=== PATIENT | female | born 1950 | race Caucasian/White ===

== ENCOUNTER 2018-01-25 18:18 | Inpatient (IN) | payer MEDICARE ==
[2018-01-25] MEDS ORDERED: SODIUM CHLORIDE 0.9% 500 ML IV STA (18:54)
[2018-01-25] MEDS ORDERED: ONDANSETRON 4 MG/2 ML VIAL IVP STA (18:54)
[2018-01-25] MEDS ORDERED: MORPHINE SULFATE 2 MG/ML SYRINGE IVP STA (18:54)
--- NOTE | 2018-01-25 18:58 | ED ---
Abdominal Pain HPI - General Chief Complaint: Abdominal Pain Stated Complaint: abdominal pain Time Seen by Provider: 01/25/18 18:42 Source: patient Mode of arrival: wheelchair Limitations: no limitations - History of Present Illness Initial Comments: 67-year-old female patient presents to the emergency department today for evaluation of upper abdominal pain. The patient states the pain radiates up into her chest and down into her abdomen. Denies any radiation of the pain into her back. Patient states that this started suddenly while she was eating approximately one hour ago. Patient states she did attempt to eat a few more bites however the pain just got worse. Patient states she has had sweats with this. Denies any shortness of breath. States she is feeling nauseated but has not vomited. States that she has been having normal bowel movements. Denies any fevers or chills. Denies any history of similar symptoms. Patient denies any recent rash, diarrhea, constipation, numbness, tingling, dizziness, weakness , hematuria, dysuria, urinary urgency, urinary frequency, headache, visual changes, or any other complaints. - Related Data Home Medications Medication Instructions Recorded Confirmed Calcium Carbonate [Calcium] 600 mg PO DAILY 01/25/18 01/25/18 Multivitamins, Thera [Multivitamin 1 tab PO DAILY 01/25/18 01/25/18 (formulary)] Allergies Allergy/AdvReac Type Severity Reaction Status Date / Time No Known Allergies Allergy Verified 01/25/18 19:12 Review of Systems ROS Statement: Those systems with pertinent positive or pertinent negative responses have been documented in the HPI. ROS Other: All systems not noted in ROS Statement are negative. Past Medical History Additional Past Medical History / Comment(s): fatty liver History of Any Multi-Drug Resistant Organisms: None Reported Past Surgical History: No Surgical Hx Reported Past Psychological History: No Psychological Hx Reported Smoking Status: Never smoker Past Alcohol Use History: None Reported Past Drug Use History: None Reported General Exam Limitations: no limitations General appearance: alert, in no apparent distress, other (This is a well- developed, well-nourished adult female patient in no acute distress. Vital signs upon presentation are temperature 98.2F, pulse 60, respirations 20, blood pressure 183/90, pulse ox 99% on room air.) Eye exam: Present: normal appearance, PERRL, EOMI. Absent: scleral icterus, conjunctival injection, periorbital swelling ENT exam: Present: normal exam, normal oropharynx, mucous membranes moist Respiratory exam: Present: normal lung sounds bilaterally. Absent: respiratory distress, wheezes, rales, rhonchi, stridor Cardiovascular Exam: Present: regular rate, normal rhythm, normal heart sounds. Absent: systolic murmur, diastolic murmur, rubs, gallop, clicks GI/Abdominal exam: Present: soft, tenderness (Midepigastric tenderness), normal bowel sounds. Absent: distended, guarding, rebound, rigid Neurological exam: Present: alert, oriented X3, CN II-XII intact Psychiatric exam: Present: normal affect, normal mood Skin exam: Present: warm, dry, intact, normal color. Absent: rash Course Vital Signs 01/25/18 01/25/18 01/25/18 18:21 19:49 20:21 Temperature 98.2 F Pulse Rate 60 78 56 L Respiratory 20 19 15 Rate Blood Pressure 183/90 174/73 154/72 O2 Sat by Pulse 99 97 98 Oximetry 01/25/18 01/25/18 01/25/18 21:21 22:43 23:28 Temperature 98.2 F Pulse Rate 59 L 67 68 Respiratory 18 18 16 Rate Blood Pressure 156/82 140/94 149/75 O2 Sat by Pulse 98 95 95 Oximetry Medical Decision Making - Medical Decision Making 67-year-old female patient presented to the emergency department today for evaluation of midepigastric abdominal pain. Physical examination did reveal some tenderness over the midepigastric region. Labs reviewed and were unremarkable. Patient was given multiple doses of pain medication here in the department, despite this her symptoms continued. Patient did attempt to eat some ice chips however had return of pain immediately upon attempting to eat. Given patient's continued pain I did perform CT abdomen and pelvis which did reveal an incarcerated hiatal hernia with gastric antrum and duodenal bulb into the chest. There was concern for some obstruction of the gastric contents related to this. My attending Dr. Og did speak to the surgeon lamination inspector Dr. Rico who recommended placement of an NG tube and admission to the hospital for further evaluation. Patient will be admitted to Dr. Gutierres. Pain medication and nausea medication will be provided. Patient is NPO. - Lab Data Result diagrams: 01/25/18 18:37 01/25/18 18:37 Lab Results 01/25/18 01/25/18 01/25/18 Range/Units 18:37 18:37 18:37 WBC 5.9 (3.8-10.6) k/uL RBC 4.40 (3.80-5.40) m/uL Hgb 13.4 (11.4-16.0) gm/dL Hct 41.3 (34.0-46.0) % MCV 93.7 (80.0-100.0) fL MCH 30.5 (25.0-35.0) pg MCHC 32.5 (31.0-37.0) g/dL RDW 12.9 (11.5-15.5) % Plt Count 202 (150-450) k/uL Neutrophils % 49 % Lymphocytes % 39 % Monocytes % 7 % Eosinophils % 2 % Basophils % 1 % Neutrophils # 2.9 (1.3-7.7) k/uL Lymphocytes # 2.3 (1.0-4.8) k/uL Monocytes # 0.4 (0-1.0) k/uL Eosinophils # 0.1 (0-0.7) k/uL Basophils # 0.0 (0-0.2) k/uL Sodium 141 (137-145) mmol/L Potassium 3.7 (3.5-5.1) mmol/L Chloride 104 (98-107) mmol/L Carbon Dioxide 26 (22-30) mmol/L Anion Gap 11 mmol/L BUN 15 (7-17) mg/dL Creatinine 0.94 (0.52-1.04) mg/dL Est GFR (CKD-EPI)AfAm 74 (>60 ml/min/1.73 sqM) Est GFR (CKD-EPI)NonAf 64 (>60 ml/min/1.73 sqM) Glucose 91 (74-99) mg/dL Plasma Lactic Acid Can (0.7-2.0) mmol/L Calcium 10.1 (8.4-10.2) mg/dL Total Bilirubin 0.9 (0.2-1.3) mg/dL AST 45 H (14-36) U/L ALT 28 (9-52) U/L Alkaline Phosphatase 90 (38-126) U/L Total Creatine Kinase 165 H (30-135) U/L CK-MB (CK-2) 1.8 (0.0-2.4) ng/mL CK-MB (CK-2) Rel Index 1.1 Troponin I <0.012 (0.000-0.034) ng/mL Total Protein 8.0 (6.3-8.2) g/dL Albumin 4.6 (3.5-5.0) g/dL Amylase 68 (30-110) U/L Lipase 50 (23-300) U/L Urine Color Urine Appearance (Clear) Urine pH (5.0-8.0) Ur Specific [place] (1.001-1.035) Urine Protein (Negative) Urine Glucose (UA) (Negative) Urine Ketones (Negative) Urine Blood (Negative) Urine Nitrite (Negative) Urine Bilirubin (Negative) Urine Urobilinogen (<2.0) mg/dL Ur Leukocyte Esterase (Negative) Urine RBC (0-5) /hpf Urine WBC (0-5) /hpf Ur Squamous Epith Cells (0-4) /hpf Urine Bacteria (None) /hpf Hyaline Casts (0-2) /lpf Urine Mucus (None) /hpf Urine Yeast (Budding) (None) /hpf 01/25/18 01/25/18 Range/Units 18:37 19:29 WBC (3.8-10.6) k/uL RBC (3.80-5.40) m/uL Hgb (11.4-16.0) gm/dL Hct (34.0-46.0) % MCV (80.0-100.0) fL MCH (25.0-35.0) pg MCHC (31.0-37.0) g/dL RDW (11.5-15.5) % Plt Count (150-450) k/uL Neutrophils % % Lymphocytes % % Monocytes % % Eosinophils % % Basophils % % Neutrophils # (1.3-7.7) k/uL Lymphocytes # (1.0-4.8) k/uL Monocytes # (0-1.0) k/uL Eosinophils # (0-0.7) k/uL Basophils # (0-0.2) k/uL Sodium (137-145) mmol/L Potassium (3.5-5.1) mmol/L Chloride (98-107) mmol/L Carbon Dioxide (22-30) mmol/L Anion Gap mmol/L BUN (7-17) mg/dL Creatinine (0.52-1.04) mg/dL Est GFR (CKD-EPI)AfAm (>60 ml/min/1.73 sqM) Est GFR (CKD-EPI)NonAf (>60 ml/min/1.73 sqM) Glucose (74-99) mg/dL Plasma Lactic Acid Can 1.3 (0.7-2.0) mmol/L Calcium (8.4-10.2) mg/dL Total Bilirubin (0.2-1.3) mg/dL AST (14-36) U/L ALT (9-52) U/L Alkaline Phosphatase (38-126) U/L Total Creatine Kinase (30-135) U/L CK-MB (CK-2) (0.0-2.4) ng/mL CK-MB (CK-2) Rel Index Troponin I (0.000-0.034) ng/mL Total Protein (6.3-8.2) g/dL Albumin (3.5-5.0) g/dL Amylase (30-110) U/L Lipase (23-300) U/L Urine Color Yellow Urine Appearance Cloudy H (Clear) Urine pH 6.0 (5.0-8.0) Ur Specific [place] 1.014 (1.001-1.035) Urine Protein Trace H (Negative) Urine Glucose (UA) Negative (Negative) Urine Ketones Trace H (Negative) Urine Blood Trace H (Negative) Urine Nitrite Negative (Negative) Urine Bilirubin Negative (Negative) Urine Urobilinogen <2.0 (<2.0) mg/dL Ur Leukocyte Esterase Large H (Negative) Urine RBC 21 H (0-5) /hpf Urine WBC >182 H (0-5) /hpf Ur Squamous Epith Cells 13 H (0-4) /hpf Urine Bacteria Moderate H (None) /hpf Hyaline Casts 4 H (0-2) /lpf Urine Mucus Rare H (None) /hpf Urine Yeast (Budding) Rare H (None) /hpf - EKG Data -: EKG Interpreted by Me EKG Comments: EKG obtained in 190 shows sinus bradycardia with a ventricular rate of 57, SD interval 200, QR baptist 104, QTC 482, QTc 469. No evidence of ST elevation or depression - Radiology Data Radiology results: report reviewed, image reviewed Two-view x-ray of the chest is obtained. Report was reviewed in its entirety. Impression by Dr. Donis shows hiatal hernia. No active cardiopulmonary disease. Normal heart. Two-view x-ray of the abdomen is obtained. Report was reviewed in its entirety. Impression by Dr. Donis shows There is probably some constipation. Nonacute abdomen. Hiatal hernia. CT abdomen and pelvis with contrast was obtained. Report was reviewed in its entirety. Impression by Dr. Donis shows sigmoid diverticulosis without diverticulitis. There is hiatal hernia. There is incarcerated hernia the gastric antrum and duodenal bulb into the chest. There is probably some degree of obstruction of the gastric emptying due to his unusual hernia. No sign of acute abdomen and pelvis. Normal appendix. One view x-ray of the abdomen is obtained for tube placement. NG tube appears in good position. Disposition Clinical Impression: Incarcerated hiatal hernia Disposition: ADMITTED IP TO THIS [facility] Condition: Serious Decision to Admit Reason: Admit from [facility] Decision Date: 01/25/18 Decision Time: 23:43
[2018-01-25 19:07] LABS: Basophils % (A) 1 %; Eosinophils # (A) 0.1 k/uL (0-0.7); Eosinophils % (A) 2 %; HCT 41.3 % (34.0-46.0); HGB 13.4 gm/dL (11.4-16.0); Lymphocytes # (A) 2.3 k/uL (1.0-4.8); Lymphocytes % (A) 39 %; MCH 30.5 pg (25.0-35.0); MCHC 32.5 g/dL (31.0-37.0); MCV 93.7 fL (80.0-100.0); Mean Platelet Volume 7.5; Monocytes # (A) 0.4 k/uL (0-1.0); Monocytes % (A) 7 %; Neutrophils # (A) 2.9 k/uL (1.3-7.7); Neutrophils % (A) 49 %; Platelet Count 202 k/uL (150-450); RDW 12.9 % (11.5-15.5); WBC 5.9 k/uL (3.8-10.6)
[2018-01-25 19:09] LABS: Albumin 4.6 g/dL (3.5-5.0); Calcium 10.1 mg/dL (8.4-10.2); Potassium 3.7 mmol/L (3.5-5.1); Total Bilirubin 0.9 mg/dL (0.2-1.3)
[2018-01-25 19:17] LABS: Creatine Kinase 165 U/L (30-135)
[2018-01-25 19:29] LABS: Creatine Kinase MB 1.8 ng/mL (0.0-2.4); Troponin I <0.012 ng/mL (0.000-0.034)
[2018-01-25 19:42] LABS: Appearance,Urine Cloudy (Clear); Bacteria,Urine Moderate /hpf; Bilirubin,Urine Negative (Negative); Blood,Urine Trace (Negative); Budding Yeast,Urine Rare /hpf; Color,Urine Yellow; Glucose,Urine (UA) Negative (Negative); Hyaline Casts,Urine 4 /lpf (0-2); Ketones,Urine Trace (Negative); Leukocyte Esterase,Urine Large (Negative); Mucus,Urine Rare /hpf; Nitrite,Urine Negative (Negative); Protein,Urine Trace (Negative); RBC,Urine 21 /hpf (0-5); Specific Gravity,Urine 1.014 (1.001-1.035); Squamous Epithelial Cell,Urine 13 /hpf (0-4); Urobilinogen,Urine <2.0 mg/dL (<2.0); WBC,Urine >182 /hpf (0-5)
[2018-01-25] MEDS ORDERED: MORPHINE SULFATE 4 MG/ML SYRINGE IVP STA (19:51)
--- NOTE | 2018-01-25 19:54 | XR ---
EXAMINATION TYPE: XR chest 2V DATE OF EXAM: 01/25/2018 COMPARISON: NONE HISTORY: Abdominal pain TECHNIQUE: Frontal and lateral views of the chest are obtained. FINDINGS: There is moderate hiatal hernia. Heart is normal. Lungs are clear of infiltrate. There is no pleural effusion. Bony thorax is intact. IMPRESSION: Hiatal hernia. No active cardiopulmonary disease. Normal heart.
--- NOTE | 2018-01-25 20:00 | XR ---
EXAMINATION TYPE: XR KUB DATE OF EXAM: 01/25/2018 COMPARISON: NONE HISTORY: Abdominal pain TECHNIQUE: 2 views FINDINGS: There is no sign of intestinal obstruction or pneumoperitoneum. There is some retained feca l material throughout the colon. There are no pathologic calcifications over the kidneys. Lung bases are clear. There is hiatal hernia. There is no evidence of a mass. IMPRESSION: There is probably some constipation. Nonacute abdomen. Hiatal hernia.
[2018-01-25] MEDS ORDERED: METOCLOPRAMIDE 5 MG/ML 2 ML VIAL IVP STA (20:15)
--- NOTE | 2018-01-25 21:51 | CT ---
EXAMINATION TYPE: CT abdomen pelvis w con DATE OF EXAM: 01/25/2018 COMPARISON: None HISTORY: Hiatal hernia, abdominal pain CT DLP: 532.2 mGycm Automated exposure control for dose reduction was used. TECHNIQUE: Helical acquisition of images was performed from the lung bases through the pelvis. CONTRAST: Performed without Oral Contrast and with IV Contrast, patient injected with 100 mL of Isovue 300. FINDINGS: Lung bases are clear of infiltrate. There is no pleural effusion. There is subsegmental atelectasis a t the right lung base. There is moderate-sized hiatal hernia. The hiatal hernia is the gastric antrum herniating through the esophageal hiatus. Liver spleen pancreas gallbladder appear normal. Bile ducts are not dilated. There is no adrenal mass . Kidneys show satisfactory contrast opacification. There is no hydronephrosis. Appendix appears norm al. There is no retroperitoneal adenopathy. There are numerous diverticula in the sigmoid colon. I se e no sign of diverticulitis. Bladder distends smoothly. Uterus is anteverted. There is no evidence of a pelvic mass. Lumbar spine is intact. IMPRESSION: SIGMOID DIVERTICULOSIS WITHOUT DIVERTICULITIS. THERE IS HIATAL HERNIA. THERE IS INCARCERATED HERNIA O F THE GASTRIC ANTRUM AND DUODENAL BULB INTO THE CHEST. THERE IS PROBABLY SOME DEGREE OF OBSTRUCTION O F THE GASTRIC EMPTYING DUE TO THIS UNUSUAL HERNIA. NO SIGN OF ACUTE ABDOMEN AND PELVIS. NORMAL APPENDIX.
[2018-01-25] MEDS ORDERED: NALOXONE 0.4 MG/ML 1 ML VIAL IV PRN (22:45)
[2018-01-25] MEDS ORDERED: ONDANSETRON 4 MG/2 ML VIAL IVP PRN (22:45)
[2018-01-25] MEDS ORDERED: MORPHINE SULFATE 4 MG/ML SYRINGE IV PRN (22:45)
--- NOTE | 2018-01-25 23:28 | XR ---
EXAMINATION TYPE: XR abdomen 1V DATE OF EXAM: 01/25/2018 COMPARISON: NONE HISTORY: Check tube placement TECHNIQUE: Single view FINDINGS: There is nasogastric feeding tube with the tip probably in the body of the stomach. There i s some dilute contrast in the renal collecting systems. There is no sign of pneumoperitoneum. IMPRESSION: NG tube appears in good position.
[2018-01-25] MEDS: SODIUM CHLORIDE 0.9% 1,000 ML IV SCH (23:31)
[2018-01-26] MEDS: FAMOTIDINE 20 MG/2 ML VIAL IV SCH ×2 (09:52→20:15)
--- NOTE | 2018-01-26 10:23 | P.GSHP ---
History of Present Illness H&P Date: 01/26/18 Chief Complaint: Abdominal 67-year-old female presented to the emergency room on the day of admission with a chief complaint of developing a sudden onset of midepigastric abdominal pain patient denied any prior episodes. Patient stated there was tenderness to the mid epigastric region. Patient stated the symptoms continue to persist. Presented to the emergency room for the above-mentioned symptoms. A CAT scan of the abdomen and pelvis reviewed the report showed incarcerated hiatal hernia with gastric antrum and duodenal bulb into the chest. Currently has a nasal gastric tube in place which was placed in the emergency room. Patient stated after the gastric tube was placed there was a significant improvement in the abdominal bloating patient has no significant past surgical history no medical history. Patient stated that she did intentionally lose 20 pounds this summer after she was told she had a fatty liver. Patient stated that she maintained on a low -fat diet . Currently states nasal gastric tube has decreased the abdominal distention with less abdominal pain - Review of Systems Comment: Essentially unremarkable except as mentioned in the present illness Past Medical History Additional Past Medical History / Comment(s): fatty liver, pre diabetic managed with diet and exercise History of Any Multi-Drug Resistant Organisms: None Reported Past Surgical History: No Surgical Hx Reported Additional Past Surgical History / Comment(s): D and C years ago, cyst removed from finger, wisdom teeth Past Psychological History: No Psychological Hx Reported Smoking Status: Never smoker Past Alcohol Use History: None Reported Past Drug Use History: None Reported - Past Family History Mother Family Medical History: Hyperlipidemia Additional Family Medical History / Comment(s): 85 she is slii alive, Medications and Allergies Home Medications Medication Instructions Recorded Confirmed Type Calcium Carbonate [Calcium] 600 mg PO DAILY 01/25/18 01/25/18 History Multivitamins, Thera [Multivitamin 1 tab PO DAILY 01/25/18 01/25/18 History (formulary)] Allergies Allergy/AdvReac Type Severity Reaction Status Date / Time No Known Allergies Allergy Verified 01/25/18 19:12 Surgical - Exam Vital Signs Temp Pulse Resp BP Pulse Ox 98.2 F 60 20 183/90 99 01/25/18 18:21 01/25/18 18:21 01/25/18 18:21 01/25/18 18:21 01/25/18 18:21 GENERAL APPEARANCE: 67-year-old patient is alert, oriented, in no acute distress. Sitting up in bed and nasogastric tube in place reports a noted improvement in the abdominal distention less abdominal pain VITAL SIGNS: Reviewed HEENT: Head is normocephalic and atraumatic. Pupils are equal and reactive. The nares are patent. Oropharynx is clear without lesions. NECK: Supple without lymphadenopathy. Traches midline. HEART: S1, S2. Regular rate and rhythm. Denies any chest pain no murmur noted LUNGS: No crackles or wheezes are heard. On room air sats greater than 95% ABDOMEN: Soft, epigastric tenderness nasogastric tube to suction brownish secretions noted in the canister nondistended few bowel sounds. No peritoneal signs. No palpable organomegaly or masses. EXTREMITIES: Normal skin color and turgor. No cyanosis, rash, ulceration, clubbing or edema. Radial pedal pulses are 2/4 bilaterally. NEUROLOGICAL: No focal deficits. Strength and sensation are grossly intact. Results - Labs 01/25/18 18:37 01/25/18 18:37 Abnormal Lab Results - Last 24 Hours (Table) 01/25/18 01/25/18 01/25/18 Range/Units 18:37 18:37 19:29 AST 45 H (14-36) U/L Total Creatine Kinase 165 H (30-135) U/L Urine Appearance Cloudy H (Clear) Urine Protein Trace H (Negative) Urine Ketones Trace H (Negative) Urine Blood Trace H (Negative) Ur Leukocyte Esterase Large H (Negative) Urine RBC 21 H (0-5) /hpf Urine WBC >182 H (0-5) /hpf Ur Squamous Epith Cells 13 H (0-4) /hpf Urine Bacteria Moderate H (None) /hpf Hyaline Casts 4 H (0-2) /lpf Urine Mucus Rare H (None) /hpf Urine Yeast (Budding) Rare H (None) /hpf Diabetes panel 01/25/18 Range/Units 18:37 Sodium 141 (137-145) mmol/L Potassium 3.7 (3.5-5.1) mmol/L Chloride 104 (98-107) mmol/L Carbon Dioxide 26 (22-30) mmol/L BUN 15 (7-17) mg/dL Creatinine 0.94 (0.52-1.04) mg/dL Glucose 91 (74-99) mg/dL Calcium 10.1 (8.4-10.2) mg/dL AST 45 H (14-36) U/L ALT 28 (9-52) U/L Alkaline Phosphatase 90 (38-126) U/L Total Protein 8.0 (6.3-8.2) g/dL Albumin 4.6 (3.5-5.0) g/dL Calcium panel 01/25/18 Range/Units 18:37 Calcium 10.1 (8.4-10.2) mg/dL Albumin 4.6 (3.5-5.0) g/dL Pituitary panel 01/25/18 Range/Units 18:37 Sodium 141 (137-145) mmol/L Potassium 3.7 (3.5-5.1) mmol/L Chloride 104 (98-107) mmol/L Carbon Dioxide 26 (22-30) mmol/L BUN 15 (7-17) mg/dL Creatinine 0.94 (0.52-1.04) mg/dL Glucose 91 (74-99) mg/dL Calcium 10.1 (8.4-10.2) mg/dL Adrenal panel 01/25/18 Range/Units 18:37 Sodium 141 (137-145) mmol/L Potassium 3.7 (3.5-5.1) mmol/L Chloride 104 (98-107) mmol/L Carbon Dioxide 26 (22-30) mmol/L BUN 15 (7-17) mg/dL Creatinine 0.94 (0.52-1.04) mg/dL Glucose 91 (74-99) mg/dL Calcium 10.1 (8.4-10.2) mg/dL Total Bilirubin 0.9 (0.2-1.3) mg/dL AST 45 H (14-36) U/L ALT 28 (9-52) U/L Alkaline Phosphatase 90 (38-126) U/L Total Protein 8.0 (6.3-8.2) g/dL Albumin 4.6 (3.5-5.0) g/dL Assessment and Plan Assessment: Impression Present on admission mid epigastric abdominal pain sudden onset with bloating nausea vomiting CAT scan abdomen and pelvis obtained on admission report indicate incarcerated hiatal hernia with gastric antrum and duodenal bulb into the chest Present on admission hypertension urgency suspect due to pain plan Keep patient nothing by mouth Pain control Continue nasogastric tube to suction DVT and GI prophylaxis Scheduled today for laparoscopic repair of hiatal hernia IV fluid hydration Repeat labs in the morning The above impression and plan of care have been discussed and directed by signing physician. Margo Logan nurse practitioner acting as scribe for signing physician.
[2018-01-26] MEDS ORDERED: IV FLUID CONTINUATION 1,000 ML IV ONE (13:09)
[2018-01-26] MEDS ORDERED: DEXAMETHASONE SOD PHOSPHATE 4 MG/ML 1 ML VIAL IV ONE (13:28)
[2018-01-26] MEDS ORDERED: MIDAZOLAM 2 MG/2 ML VIAL IV ONE (13:36)
[2018-01-26] MEDS ORDERED: hydrALAZINE HCL 20 MG/ML 1 ML VIAL IVP PRN (13:43)
[2018-01-26] MEDS ORDERED: HEPARIN SODIUM,PORCINE 5,000 UNIT/ML 1 ML VIAL SQ ONE (14:06)
[2018-01-26] MEDS ORDERED: MORPHINE SULFATE 10 MG/ML SYRINGE ONE (14:33)
[2018-01-26] MEDS ORDERED: ROCURONIUM BROMIDE 10 MG/ML 10 ML VIAL IV ONE (14:33)
[2018-01-26] MEDS ORDERED: PROPOFOL 10 MG/ML 20 ML VIAL IV ONE (14:33)
[2018-01-26] MEDS ORDERED: LIDOCAINE 1% INJ 10MG/ML (20 ML MDV) ONE (14:33)
[2018-01-26] MEDS ORDERED: NEOSTIGMINE 1 MG/ML 10 ML VIAL ONE (14:33)
[2018-01-26] MEDS ORDERED: fentaNYL (PF) 50 MCG/ML 2 ML AMP ONE (14:33)
[2018-01-26] MEDS ORDERED: GLYCOPYRROLATE 0.2 MG/ML 2 ML VIAL ONE (14:33)
[2018-01-26] MEDS ORDERED: SUCCINYLCHOLINE CHLORIDE 100 MG/5 ML SYR IV ONE (14:33)
[2018-01-26] MEDS ORDERED: ePHEDrine SULFATE/0.9% NACL/PF 50 MG/5 ML SYRINGE IV ONE (14:33)
[2018-01-26] MEDS ORDERED: MIDAZOLAM 2 MG/2 ML VIAL ONE (14:33)
[2018-01-26] MEDS ORDERED: BUPIVACAIN-EPI 0.5%-1:200,000 30 ML VIAL SQ ONE (14:58)
[2018-01-26] MEDS ORDERED: LACTATED RINGERS 1,000 ML IV ONE (15:36)
--- NOTE | 2018-01-26 15:51 | P.OP ---
Date of Procedure: 01/26/18 Preoperative Diagnosis: Paraesophageal hernia with intrathoracic stomach Postoperative Diagnosis: Large paraesophageal hernia with intrathoracic stomach Procedure(s) Performed: Laparoscopic repair of paraesophageal hernia with mesh and fundoplication Anesthesia: ENRIKE Surgeon: German Gutierres IV fluids (ml): 10 Pathology: none sent Condition: stable Disposition: PACU Description of Procedure: The patient was placed on the operating table in the supine position. She received general anesthesia. She was then placed in dorsal lithotomy position. Her abdomen was prepped and draped in the usual sterile fashion. The skin incision sites were anesthetized with 1% local Xylocaine. The skin was incised in the left periumbilical area with an 11 scalpel. Using a 5 mm blade was trocar under direct visitation the peritoneal cavity was entered. And then insufflated. After adequate insufflation the laparoscope was placed back into the peritoneal cavity. Next a 5 mm trocar was placed in the right epigastric and then the right lateral position. Another 5 mm trochars placed in the left lateral position. Another 5 mm trocar placed in the left epigastric position. And the original left periumbilical trocar was exchanged for a 10 mm trocar. The left lateral lobe liver was retracted. The patient had a large hiatal hernia. There was a paraesophageal component. Stomach is intrathoracic. There is a large amount of omentum in the hernia. Using the Harmonic scissors the crural defect was dissected in the Harmonic scissors were used to dissect the hiatal hernia sac. The fundus of the stomach was completely mobilized by using the Harmonic scissors to divide short gastric vessels. The stomach was reduced into the peritoneal cavity. The crura was dissected with the Harmonic scissors. And then the crural repair was performed using 2-0 Ethibond suture. The [place] bio A mesh was then placed over top of the repair and secured with 2-0 Ethibond suture. Next a 58-Iraqi bougie dilator was placed the patient's oral pharynx and into the esophagus into the stomach by the WAIST PRESSER. The fundoplication was then performed using 2-0 Ethibond suture. A 360 fundoplication was performed. At this point the dilator was withdrawn. The stomach and esophagus were inspected there is known to any injury to the stomach or esophagus. The abdomen was irrigated there is no bleeding seen. The trochars are withdrawn. Skin was closed interrupted 3-0 Monocryl suture. Dermabond was applied. Patient tolerated procedure well and was sent to recovery in stable condition.
[2018-01-26] MEDS: HYDROmorphone 1 MG/ML 1 ML SYRINGE IVP ONE ×2 (16:50→17:05)
--- NOTE | 2018-01-26 16:51 | CONS ---
CONSULTATION DATE OF SERVICE: 01/26/2018. REASON FOR CONSULTATION: Advice regarding prediabetes and other medical issues requested by Dr. Gutierres. HISTORY OF PRESENT ILLNESS: This 67-year-old woman with a past medical history of fatty liver, prediabetes, being followed by primary physician in [place] was visiting family in [place]. The patient was noted to have abdominal pain which is in the upper abdomen radiating to the chest and back and the patient came to [facility] and admitted for further evaluation and treatment. The UA showed evidence of UTI and abdominal pelvis CAT scan was also done which showed evidence of sigmoid diverticulosis without any diverticulitis and also incarcerated hiatal hernia with a gastric antrum and duodenal bulb into the chest and some obstruction of the gastric emptying was also noted. Patient admitted for further evaluation. Dr. Gutierres is following the patient closely for possible surgery. There is no history of fever, rigors. No headache, loss of consciousness, seizures. PAST MEDICAL HISTORY: Fatty live, Prediabetes, diet and exercise. MEDICATIONS: Prior to admission: 1. Multivitamins 1 p.o. daily. 2. Calcium 600 mg. ALLERGIES: None. FAMILY HISTORY: Hyperlipidemia in the family. SOCIAL HISTORY: No history of smoking. No history of alcohol intake. REVIEW OF SYSTEMS: ENT: No diminished hearing or vision. CARDIOVASCULAR: No angina. RESPIRATORY: No cough. GI: As mentioned earlier. : No dysuria. NERVOUS SYSTEM: No numbness or weakness. ALLERGY/IMMUNOLOGY: No asthma. MUSCULOSKELETAL: As mentioned earlier. HEMATOLOGY/ONCOLOGY: No history of diabetes or hypothyroidism. CONSTITUTIONAL: As mentioned earlier. DERMATOLOGY: Negative. RHEUMATOLOGY: Negative. PSYCHIATRY: As mentioned earlier. PHYSICAL EXAMINATION: Alert, oriented x3. Pulse 62, blood pressure 170/85, respirations 16, temperature 97.7, pulse ox 98% on room air. HEENT: Conjunctivae normal. Oral mucosa moist. NECK: No jugular venous distention. No carotid bruit. No lymph node enlargement. CARDIOVASCULAR: S1, S2. No S3, no S4. RESPIRATORY: Breath sounds diminished in the bases. A few scattered rhonchi. No crackles. ABDOMEN: Soft. Mild diffuse discomfort on palpation. No guarding. No rigidity. No mass palpable. Bowel sounds diminished. LEGS: No edema, no swelling. NERVOUS SYSTEM: Higher functions as mentioned. Moves all 4 limbs. No focal motor deficits. LYMPHATICS: No lymphadenopathy in the neck, axillae, groin. SKIN: No ulcer, rash. LABS: CBC within normal limits. AST is 45, 165. Troponins are negative. UA shows UTI. ASSESSMENT: 1. Abdominal pain with incarcerated hiatal hernia with a gastric antrum and duodenal bulb into the chest. 2. Sigmoid diverticulosis without diverticulitis. 3. Prediabetes. 4. Labile hypertension. 5. Increased AST. 6. Urinary tract infection. RECOMMENDATION AND DISCUSSION: This 67-year-old woman who presented with multiple medical issues, at this time I recommend to continue current management and symptomatic treatment. I would recommend IV Rocephin. Follow the cultures. Surgical evaluation. Also recommend DVT prophylaxis. Repeat labs. We will follow the patient closely with you. I recommend to monitor blood pressure closely and p.r.n. hydralazine may be used for now. See orders for further details. Thank you Dr. Gutierres for letting us participate in this patient. MMODL / IJN: [id number] / MIRA
[2018-01-26] MEDS: D5-0.45% NACL WITH KCL 20MEQ/L 1,000 ML IV SCH (17:55)
[2018-01-26] MEDS: SODIUM CHLORIDE 0.9% 1,000 ML IV SCH (18:12)
[2018-01-26] MEDS: HYDROmorphone 1 MG/ML 1 ML SYRINGE IVP PRN (19:15)
[2018-01-26] MEDS ORDERED: HEPARIN SODIUM,PORCINE 5,000 UNIT/ML 1 ML VIAL SQ SCH (21:00)
[2018-01-27] MEDS: HYDROmorphone 1 MG/ML 1 ML SYRINGE IVP PRN ×5 (01:22→20:19)
[2018-01-27] MEDS: SODIUM CHLORIDE 0.9% 1,000 ML IV SCH ×3 (05:08→13:46)
[2018-01-27] MEDS: D5-0.45% NACL WITH KCL 20MEQ/L 1,000 ML IV SCH ×4 (05:08→23:25)
[2018-01-27 07:22] LABS: Basophils % (A) 0 %; Eosinophils % (A) 0 %; HCT 37.6 % (34.0-46.0); HGB 12.2 gm/dL (11.4-16.0); Lymphocytes # (A) 0.5 k/uL (1.0-4.8); Lymphocytes % (A) 7 %; MCH 30.6 pg (25.0-35.0); MCHC 32.5 g/dL (31.0-37.0); MCV 94.2 fL (80.0-100.0); Mean Platelet Volume 7.7; Monocytes # (A) 0.4 k/uL (0-1.0); Monocytes % (A) 6 %; Neutrophils # (A) 6.2 k/uL (1.3-7.7); Neutrophils % (A) 87 %; Platelet Count 163 k/uL (150-450); RDW 12.9 % (11.5-15.5); WBC 7.2 k/uL (3.8-10.6)
[2018-01-27 07:42] LABS: ALT 43 U/L (9-52); AST 63 U/L (14-36); Albumin 3.6 g/dL (3.5-5.0); Alkaline Phosphatase 55 U/L (38-126); Anion Gap 9 mmol/L; Blood Urea Nitrogen 11 mg/dL (7-17); Calcium 9.1 mg/dL (8.4-10.2); Carbon Dioxide 25 mmol/L (22-30); Chloride 104 mmol/L (98-107); Glucose 135 mg/dL (74-99); Potassium 4.5 mmol/L (3.5-5.1); Sodium 138 mmol/L (137-145); Total Bilirubin 0.7 mg/dL (0.2-1.3); Total Protein 6.3 g/dL (6.3-8.2)
[2018-01-27] MEDS: FAMOTIDINE 20 MG/2 ML VIAL IV SCH ×2 (08:45→20:20)
[2018-01-27] MEDS: ENOXAPARIN 40 MG/0.4 ML SYRINGE SQ SCH (08:45)
--- NOTE | 2018-01-27 08:46 | FL ---
EXAMINATION TYPE: FL esophagus cervic/pharynx DATE OF EXAM ORDERED: 01/27/2018 8:41 AM HISTORY: Status post Delicia fundoplication. COMPARISON: None. FINDINGS: The patient drank contrast with ease. There was mild to moderate holdup of contrast at the GE junction. There is no evidence of extravasation. The ligament of Treitz is in the normal location . There is moderate free air. IMPRESSION: STATUS POST DELICIA FUNDOPLICATION.
[2018-01-27 12:28] VITALS: BMI 24.5
--- NOTE | 2018-01-27 15:52 | PN ---
PROGRESS NOTE DATE OF SERVICE: 01/27/2018 This 67-year-old woman was admitted with abdominal pain, incarcerated hiatal hernia underwent laparoscopic repair of the paraesophageal hernia with mesh and fundoplication by Dr. Gutierres. No chest pains, no palpitations. No fever. Patient also has UTI. Patient on antibiotics. EXAM: Alert and oriented x3. The pulse is 67, blood pressure 151/83, respirations 16, temperature 98.1, pulse ox 90% on room air. HEENT: Conjunctivae normal. NECK: No jugular venous distention. CARDIOVASCULAR: S1, S2. RESPIRATORY: Breath sounds diminished in the bases. A few scattered rhonchi. No crackles. ABDOMEN: Soft, mild tenderness. No mass palpable. LEGS: No edema. NERVOUS SYSTEM: No focal deficits. LABS: WBC 7, hemoglobin 12.2. AST 63 and ALT is normal. UA noted. ASSESSMENT: 1. Abdominal pain with incarcerated hiatal hernia with gastric and duodenal bulb in the chest, status post laparoscopic repair of the paraesophageal hernia with mesh and fundoplication. 2. Sigmoid diverticulosis without diverticulitis. 3. Prediabetes history. 4. Labile hypertension. 5. Increased AST. 6. Urinary tract infection, present on admission. RECOMMENDATIONS AND DISCUSSION: I recommend to continue current management and symptomatic treatment. Otherwise at this time, we will monitor the patient closely. Continue the antibiotics and incentive spirometry. Closely follow with surgery. Further recommendations to follow. JOSÉ MIGUEL / BRITTANEY: [id number] /
--- NOTE | 2018-01-27 16:15 | P.PN ---
Subjective Progress Note Date: 01/27/18 HISTORY OF PRESENT ILLNESS: The patient is a 67-year-old female who is actually traveling from out of town [place], [place] who developed acute onset chest and abdominal pain 2-3 days ago. She was found to have an intrathoracic stomach and some somatic hiatal hernia. She had emergent surgery with a hiatal hernia repair done by Dr. Gutierres yesterday. She reports persistent chest pressure however her abdominal pain is resolved. She reports moderate gas within her shoulder blades. She completed an esophagram demonstrating moderate edema along the hiatal hernia site. She reports some improvement with drinking liquids following her esophagram yesterday. PHYSICAL EXAM: GENERAL: Well-developed in no distress. HEENT: No scleral icterus. Extraocular movements grossly intact. Hears conversational speech. No nasal drainage. NECK: Supple without lymphadenopathy. CHEST: Nonlabored respirations with equal bilateral excursions. CARDIOVASCULAR: Regular rate and regular rhythm. Distal 2+ pulses. ABDOMEN: Incisions clean dry and intact MUSCULOSKELETAL: No clubbing, cyanosis, or edema. Gross strength 5/5 distal lower extremities. NEURO: No focal or lateralizing signs. Cranial nerves 2 through 12 grossly within normal limits. PSYCH: Appropriate affect. Alert and oriented to person, place and time. SKIN: Good skin turgor. Well perfused. ASSESSMENT: 1. Intrathoracic stomach from hiatal hernia PLAN: 1. Her esophagram still demonstrates moderate edema. Continue liquid diet 2. Recommend simethicone and Levsin for esophageal spasms and gas pains Objective - Vital Signs Vital signs: Vital Signs Temp 98.2 F 01/27/18 07:15 Pulse 63 01/27/18 07:15 Resp 18 01/27/18 07:15 BP 148/74 01/27/18 07:15 Pulse Ox 94 L 01/27/18 07:15 Intake & Output 01/26/18 01/27/18 01/27/18 18:59 06:59 18:59 Intake Total 2920 Output Total 10 Balance 2910 Intake: IV 1620 Intake, IV Titration 1000 Amount Sodium Chloride 0.9% 1, 1000 000 ml @ 125 mls/hr IV . Q8H DENISE Rx#:[id number] Oral 300 Output: Estimated Blood Loss 10 Other: # Voids 2 # Bowel Movements 1 - Labs CBC & Chem 7: 01/27/18 06:43 01/27/18 06:43 Labs: Abnormal Lab Results - Last 24 Hours (Table) 01/27/18 01/27/18 Range/Units 06:43 06:43 Lymphocytes # 0.5 L (1.0-4.8) k/uL Glucose 135 H (74-99) mg/dL AST 63 H (14-36) U/L Microbiology - Last 24 Hours (Table) 01/25/18 18:37 Blood Culture - Preliminary Blood No Growth after 24 hours 01/25/18 21:05 Urine Culture - Preliminary Urine,Voided
[2018-01-27] MEDS: SIMETHICONE 40 MG/0.6 ML DROPS 2,000 MG/30 ML BOTTLE PO SCH ×2 (17:10→20:20)
[2018-01-27] MEDS: HYOSCYAMINE ORAL DROPS 1.875 MG/15 ML BOTTLE PO SCH ×3 (17:10→23:26)
[2018-01-28] MEDS: HYDROmorphone 1 MG/ML 1 ML SYRINGE IVP PRN ×2 (00:36→05:40)
[2018-01-28] MEDS: HYOSCYAMINE ORAL DROPS 1.875 MG/15 ML BOTTLE PO SCH ×5 (03:25→19:37)
[2018-01-28] MEDS: SODIUM CHLORIDE 0.9% 1,000 ML IV SCH ×3 (05:30→19:28)
[2018-01-28] MEDS: D5-0.45% NACL WITH KCL 20MEQ/L 1,000 ML IV SCH ×2 (10:13→19:27)
[2018-01-28] MEDS: SIMETHICONE 40 MG/0.6 ML DROPS 2,000 MG/30 ML BOTTLE PO SCH ×4 (10:17→23:01)
[2018-01-28] MEDS: FAMOTIDINE 20 MG/2 ML VIAL IV SCH ×2 (10:17→19:37)
[2018-01-28] MEDS: ENOXAPARIN 40 MG/0.4 ML SYRINGE SQ SCH (10:17)
[2018-01-28] MEDS: cefTRIAXone IN SWFI 1,000 MG/10 ML SYRINGE IVP SCH (10:25)
[2018-01-28] MEDS ORDERED: DEXAMETHASONE SOD PHOSPHATE 10 MG/ML 1 ML VIAL IV STA (12:34)
--- NOTE | 2018-01-28 12:36 | P.PN ---
Subjective Progress Note Date: 01/28/18 CHIEF COMPLAINT: Acute epigastric abdominal pain with history of intrathoracic stomach HISTORY OF PRESENT ILLNESS: The patient is a 67-year-old female who is actually traveling from out of town [place], [place] who developed acute onset chest and abdominal pain prior to admission to the hospital. She is status post hiatal hernia repair. She had severe upper shoulder and chest pain which had improved after adjustment of medications for esophageal spasm and gas. Abdominal pain resolved. She does report dysphagia with liquids. PHYSICAL EXAM: GENERAL: Well-developed in no distress. HEENT: No scleral icterus. Extraocular movements grossly intact. Hears conversational speech. No nasal drainage. NECK: Supple without lymphadenopathy. CHEST: Nonlabored respirations with equal bilateral excursions. CARDIOVASCULAR: Regular rate and regular rhythm. Distal 2+ pulses. ABDOMEN: Incisions clean dry and intact MUSCULOSKELETAL: No clubbing, cyanosis, or edema. Gross strength 5/5 distal lower extremities. NEURO: No focal or lateralizing signs. Cranial nerves 2 through 12 grossly within normal limits. PSYCH: Appropriate affect. Alert and oriented to person, place and time. SKIN: Good skin turgor. Well perfused. ASSESSMENT: 1. Intrathoracic stomach from hiatal hernia PLAN: 1. Recommend Decadron for edema following hiatal hernia repair 2. Continue hospitalization has dysphasia improves 3. Nonnarcotic analgesics for pain Objective - Vital Signs Vital signs: Vital Signs Temp 98.4 F 01/28/18 07:37 Pulse 56 L 01/28/18 07:37 Resp 16 01/28/18 07:37 BP 139/86 01/28/18 07:37 Pulse Ox 93 L 01/28/18 07:37 Intake & Output 01/27/18 01/28/18 01/28/18 18:59 06:59 18:59 Intake Total 540 250 Output Total 700 Balance 540 -700 250 Weight 68.946 kg Intake: Oral 540 250 Output: Urine 700 Other: # Voids 1 - Labs CBC & Chem 7: 01/27/18 06:43 01/27/18 06:43 Labs: Microbiology - Last 24 Hours (Table) 01/25/18 18:37 Blood Culture - Preliminary Blood No Growth after 48 hours 01/25/18 21:05 Urine Culture - Final Urine,Voided
[2018-01-28] MEDS ORDERED: KETOROLAC 30 MG/ML 1 ML VIAL IVP PRN (12:37)
--- NOTE | 2018-01-28 14:20 | PN ---
PROGRESS NOTE DATE OF SERVICE: 01/28/2018. INTERVAL HISTORY: This 67-year-old woman who was admitted with abdominal pain, incarcerated hiatal hernia, had surgery. The patient is improving significantly. No chest pain. No palpitations. No fever. PHYSICAL EXAM: Alert and oriented times three. Pulse is 56. Blood pressure 139/86, respiration 16, temperature 98.4, pulse ox 93% room air. HEENT: Conjunctivae normal. Oral mucosa moist. NECK is no jugular venous distention. No carotid bruit. No lymph node enlargement. CARDIOVASCULAR: Breath sounds diminished in the bases. No rhonchi. No crackles. ABDOMEN: Soft. Status post surgery. Legs are no edema. No swelling. NERVOUS SYSTEM: No focal deficits. LABORATORY DATA: UTI otherwise AST 63. ASSESSMENT: 1. Abdominal pain, incarcerated hiatal hernia with a gastric and duodenal bulb in the chest status post laparoscopic repair of the paraesophageal hernia with mesh and fundoplication. 2. Sigmoid diverticulosis without diverticulitis. 3. Prediabetic history. 4. Labile hypertension. 5. Increased AST. 6. Urinary tract infection present on admission. RECOMMENDATIONS AND DISCUSSION: Recommend to continue current medications, management and symptomatic treatment. Otherwise, at this time, I recommend continue with current medications. Continue with antibiotics. Follow close with surgery. Incentive spirometry. DVT prophylaxis. Further recommendations to follow. Patient started on Decadron for the edema by Surgery. Further recommendations to follow. MMODL / IJN: [id number] / MTDD
[2018-01-29] MEDS: HYOSCYAMINE ORAL DROPS 1.875 MG/15 ML BOTTLE PO SCH ×4 (01:28→12:54)
[2018-01-29 01:32] VITALS: RESP 16
[2018-01-29] MEDS: SODIUM CHLORIDE 0.9% 1,000 ML IV SCH ×2 (03:31→09:06)
[2018-01-29 08:05] LABS: Albumin 3.8 g/dL (3.5-5.0); Bilirubin, Delta 0.3 mg/dL (0.0-0.2); Bilirubin,Unconjugated 0.5 mg/dL (0.0-1.1); Total Bilirubin 0.8 mg/dL (0.2-1.3); Total Protein 6.8 g/dL (6.3-8.2)
[2018-01-29] MEDS: D5-0.45% NACL WITH KCL 20MEQ/L 1,000 ML IV SCH (08:08)
[2018-01-29] MEDS: FAMOTIDINE 20 MG/2 ML VIAL IV SCH (08:12)
[2018-01-29] MEDS: cefTRIAXone IN SWFI 1,000 MG/10 ML SYRINGE IVP SCH (08:12)
[2018-01-29] MEDS: ENOXAPARIN 40 MG/0.4 ML SYRINGE SQ SCH (08:12)
[2018-01-29] MEDS: SIMETHICONE 40 MG/0.6 ML DROPS 2,000 MG/30 ML BOTTLE PO SCH ×2 (09:00→12:55)
[2018-01-29 14:24] VITALS: BP 146/84; PULSE 70; TEMP 98.1
--- NOTE | 2018-01-29 15:20 | P.DS ---
Providers Date of admission: 01/29/18 06:28 Expected date of discharge: 01/29/18 Attending physician: German Gutierres Consults: 01/26/18 08:32 Consult Physician Urgent Consulting Provider: Selin Stevenson Consult Reason/Comments: Medical management Do you want consulting provider notified?: Yes Primary care physician: Physician Nonstaff Hospital Course: This is a 67-year-old female who presents to the emergency room with acute incarcerated paraesophageal hiatal hernia. The patient had dysphagia and epigastric pain after eating. Patient was taken to the operating room urgently for laparoscopic repair of hiatal hernia with Loreto fundal plication. Please see chart for details. Procedures: Laparoscopic Loreto fundoplication with mesh Patient Condition at Discharge: Serious Plan - Discharge Summary Discharge Rx Participant: Yes New Discharge Prescriptions: New Docusate [Colace] 100 mg PO BID #20 capsule HYDROcodone/APAP 7.5-325MG [[place] 7.5-325] 1 tab PO Q4H PRN 3 Days #18 tab PRN Reason: Pain No Action Multivitamins, Thera [Multivitamin (formulary)] 1 tab PO DAILY Calcium Carbonate [Calcium] 600 mg PO DAILY Discharge Medication List Calcium Carbonate [Calcium] 600 mg PO DAILY 01/25/18 [History] Multivitamins, Thera [Multivitamin (formulary)] 1 tab PO DAILY 01/25/18 [History ] Docusate [Colace] 100 mg PO BID #20 capsule 01/26/18 [Rx] HYDROcodone/APAP 7.5-325MG [[place] 7.5-325] 1 tab PO Q4H PRN 3 Days #18 tab 01/26 [Rx] Follow up Appointment(s)/Referral(s): Nonstaff,Physician [Primary Care Provider] - 1-2 days German Gutierres MD [STAFF PHYSICIAN] - 1 Week
--- NOTE | 2018-01-29 18:33 | PN ---
PROGRESS NOTE DATE OF SERVICE: 01/29/2018 This 67-year-old woman who was admitted after abdominal pain, incarcerated hernia, has had surgery. Patient is improving significantly. No chest pain. No palpitation. No fever. On exam, alert and oriented x3. Pulse 70, blood pressure 146/84, respiration 16, temperature 98.1, pulse ox 96% on room air. HEENT: Conjunctivae normal. Oral mucosa moist. NECK: No jugular venous distention. No carotid bruit. No lymph node enlargement. CARDIOVASCULAR SYSTEM: S1, S2 muffled. RESPIRATORY SYSTEM: Breath sounds diminished at the bases. A few scattered rhonchi. No crackles. ABDOMEN: Soft. Status post surgery. LEGS: No edema. No swelling. NERVOUS SYSTEM: No focal deficit. LABS: CBC within normal limits and delta bilirubin 0.3. UA noted. ASSESSMENT: 1. Abdominal pain with incarcerated hiatal hernia with a gastric and duodenal bulb in the chest, status post laparoscopic repair of paraesophageal hernia with mesh and fundoplication. 2. Sigmoid diverticulosis without any diverticulitis. 3. Pre-diabetes history. 4. Labile hypertension. 5. Increased AST. 6. Urinary tract infection, present on admission. RECOMMENDATIONS AND DISCUSSION: I recommend to continue current medication, continue with symptomatic treatment. Otherwise at this time I would recommend resuming the home medications. Rest of the medications per Surgery. Further recommendations to follow. MMALFREDL / CONCEPCIONN: [id number] /
== END 2018-01-29 16:03 | disposition home or self-care (01) | DRG 327 ==
LOC: EC 18:18 → 3SUR 22:38 → OBSVTOIN 01-29 06:28
PROVIDERS: ADMIT Surgery; ATTEND Surgery
PROC: 0BUT4JZ Supplement Diaphragm with Synthetic Substitute, Percutaneous Endoscopic Approach (ICD-10-PCS; 2018-01-26)
PROC: 0DV44ZZ Restriction of Esophagogastric Junction, Percutaneous Endoscopic Approach (ICD-10-PCS; principal; 2018-01-26 09:50)
DX: K44.0 Diaphragmatic hernia with obstruction, without gangrene (principal); N39.0 Urinary tract infection, site not specified; I16.0 Hypertensive urgency; I10 Essential (primary) hypertension; K57.30 Diverticulosis of large intestine without perforation or abscess without bleeding; K76.0 Fatty (change of) liver, not elsewhere classified; R73.03 Prediabetes; R13.10 Dysphagia, unspecified
CPT/HCPCS: 36415; 43753; 71046; 74018; 74177; 74210; 80053; 80076; 81001; 82150; 82550; 82553; 83605; 83690; 84484; 85025; 87040; 87086; 93005; 96374; 96375; 96376; 99285